=== PATIENT | female | born 1995 | race Caucasian/White ===

== ENCOUNTER 2019-06-25 07:22 | Outpatient (CLI) | payer OTHER ==
[2019-06-25 13:39] LABS: CHLORIDE 110 mmol/L (98-107)
[2019-06-25 13:55] LABS: ALANINE AMINOTRANSFERASE 17 U/L (12-78); ALBUMIN 3.8 g/dL (3.4-5.0); ALKALINE PHOSPHATASE 82 U/L (45-117); ANION GAP 6 mmol/L (5-15); BILIRUBIN,TOTAL 0.4 mg/dL (0.2-1.0); CALCIUM 9.2 mg/dL (8.5-10.1); CHOL/HDL RATIO 4.3; CHOLESTEROL, TOTAL 166 mg/dL (140-239); CREATININE 0.89 mg/dL (0.55-1.02); HDL CHOL % 23 % (28-40); HDL CHOLESTEROL (DIRECT) 39 mg/dL (40-60); LDL CHOLESTEROL,CALCULATED 105 mg/dL (54-169); LDL/HDL RATIO 2.7 (0.5-3.0); TOTAL PROTEIN 7.7 g/dL (6.4-8.2); TRIGLYCERIDES 110 mg/dL (50-200); VLDL CHOLESTEROL 22 mg/dL (0-25)
== END 2019-06-25 23:59 | disposition home or self-care (01) ==
LOC: CFH 07:22
PROVIDERS: ATTEND Family Medicine
DX: E78.00 Pure hypercholesterolemia, unspecified (principal); I10 Essential (primary) hypertension; R00.2 Palpitations; R73.03 Prediabetes
CPT/HCPCS: 36415; 80053; 80061; 82306; 83036; 84439; 84443

== ENCOUNTER 2019-07-03 07:02 | Outpatient (CLI) | payer OTHER | END 2019-07-03 23:59 | disposition home or self-care (01) | LOC: CVU 07:02 | PROVIDERS: ATTEND Internal Medicine Cardiovascular Disease | DX: I08.8 Other rheumatic multiple valve diseases (principal); I11.9 Hypertensive heart disease without heart failure | CPT/HCPCS: 93306 ==

== ENCOUNTER 2020-04-30 17:07 | Emergency (ER) | payer OTHER ==
[~2020-04-30] VITALS: Ht 172.7 cm; Wt 107.8 kg
[2020-04-30 17:14] VITALS: BP 149/98
== END 2020-04-30 18:36 | disposition home or self-care (01) ==
LOC: ED 17:37
DX: U07.1 COVID-19 (principal); J06.9 Acute upper respiratory infection, unspecified; J02.8 Acute pharyngitis due to other specified organisms; R50.9 Fever, unspecified; R05 Cough; M79.10 Myalgia, unspecified site
CPT/HCPCS: 71045; 87635; 99284

== ENCOUNTER 2020-09-12 07:48 | Emergency (ER) | payer OTHER ==
[~2020-09-12] VITALS: Ht 172.7 cm; Wt 110.3 kg
[2020-09-12] MEDS ORDERED: MORPHINE SULFATE 4 MG/ML, 1ML IVPush PRN (08:30)
[2020-09-12] MEDS ORDERED: SODIUM CHLORIDE 0.9% 1,000ML IVBOLUS ONE (08:30)
[2020-09-12] MEDS ORDERED: SODIUM CHLORIDE FLUSH 10ML SYR IVF ONE (08:30)
[2020-09-12] MEDS ORDERED: ONDANSETRON 2MG/ML, 2ML IVPush ONE (08:30)
--- NOTE | 2020-09-12 08:46 | NUR ---
Pt made aware that if given morphine she will need a ride home, pt was told to let this nurse know if she would like to recieve or delay manager med surg.
[2020-09-12] MEDS ORDERED: ONDANSETRON 2MG/ML, 2ML ONE (08:48)
[2020-09-12 08:55] LABS: BASOPHILS % (AUTO) 1 % (0-1); EOSINOPHILS % (AUTO) 4 % (1-7); LYMPHOCYTES % (AUTO) 29 % (22-44); MEAN CORPUSCULAR HEMOGLOBIN 28.3 pg (27.0-34.8); MEAN CORPUSCULAR HGB CONC 34.2 g/dL (32.4-35.8); MEAN PLATELET VOLUME 8.9 fL (7.4-10.4); MONOCYTES % (AUTO) 5 % (2-9); NEUTROPHILS % (AUTO) 61 % (42-75); PLATELET COUNT 341 x10^3/uL (130-400); RED BLOOD COUNT 4.83 x10^6/uL (3.82-5.3); RED CELL DISTRIBUTION WIDTH 13.8 % (9.6-15.2)
--- NOTE | 2020-09-12 08:57 | NUR ---
pt medicated per AUG, will hold off on morphine until after CT complete per pt request.
[2020-09-12 09:03] LABS: ALANINE AMINOTRANSFERASE 19 U/L (12-78); ALBUMIN 3.6 g/dL (3.4-5.0); ANION GAP 5 mmol/L (5-15); CALCIUM 8.7 mg/dL (8.5-10.1); CHLORIDE 109 mmol/L (98-107); CREATININE 0.88 mg/dL (0.55-1.02)
[2020-09-12 09:04] LABS: MD NO
[2020-09-12 09:07] LABS: ALKALINE PHOSPHATASE 78 U/L (45-117); BILIRUBIN,TOTAL 0.5 mg/dL (0.2-1.0); TOTAL PROTEIN 7.5 g/dL (6.4-8.2)
[2020-09-12 09:24] LABS: MICROSCOPIC NOT IND
--- NOTE | 2020-09-12 09:38 | NUR ---
pt to CT
[2020-09-12] MEDS ORDERED: OMNIPAQUE 350 MG/ML, 100ML BOTTLE ONE (09:45)
--- NOTE | 2020-09-12 09:47 | NUR ---
pt back from CT
[2020-09-12 10:11] VITALS: BP 124/70
== END 2020-09-12 10:15 | disposition home or self-care (01) ==
LOC: ED 08:48
DX: I88.0 Nonspecific mesenteric lymphadenitis (principal); R10.31 Right lower quadrant pain; R10.2 Pelvic and perineal pain; R11.2 Nausea with vomiting, unspecified; I10 Essential (primary) hypertension
CPT/HCPCS: 36415; 74177; 80053; 81003; 83690; 84703; 85025; 96361; 96374; 99285; J2405; J7030; Q9967

== ENCOUNTER 2020-10-02 14:05 | Outpatient (CLI) | payer OTHER ==
[2020-10-02] MEDS ORDERED: NORE0.3560 PO (14:23)
[2020-10-02] MEDS ORDERED: Vitamin D3 PO (14:23)
[2020-10-02] MEDS ORDERED: MAGN250T8 PO (14:23)
[2020-10-02] MEDS ORDERED: FREM225A INJ (14:23)
[2020-10-02] MEDS ORDERED: LOSA25TA25 PO (14:23)
[2020-10-02 14:55] LABS: ALANINE AMINOTRANSFERASE 21 U/L (12-78); ANION GAP 5 mmol/L (5-15); CALCIUM 9.4 mg/dL (8.5-10.1); CHLORIDE 107 mmol/L (98-107); CREATININE 0.81 mg/dL (0.55-1.02)
[2020-10-02 14:57] LABS: ALKALINE PHOSPHATASE 71 U/L (45-117); BILIRUBIN,TOTAL 0.4 mg/dL (0.2-1.0)
== END 2020-10-02 23:59 | disposition home or self-care (01) ==
LOC: STAR 14:05
PROVIDERS: ATTEND Specialist
DX: Z01.812 Encounter for preprocedural laboratory examination (principal); Z20.822 Contact with and (suspected) exposure to COVID-19; N94.4 Primary dysmenorrhea; R10.2 Pelvic and perineal pain; N94.12 Deep dyspareunia
CPT/HCPCS: 36415; 80053; 93005; U0003

== ENCOUNTER 2020-10-07 10:27 | Day surgery (SDC) | payer OTHER ==
[~2020-10-07] VITALS: Ht 172.7 cm; Wt 108.1 kg
[~2020-10-07 10:27] MED LIST: FREM225A INJ; LOSA25TA25 PO; MAGN250T8 PO; NORE0.3560 PO; Vitamin D3 PO
[2020-10-07] MEDS ORDERED: CHLORHEXIDINE 15 ML UDC ONE (11:14)
[2020-10-07 11:19] LABS: HCG UR SG 1.023 (1.003-1.030)
[2020-10-07] MEDS ORDERED: LACTATED RINGERS 1,000 ML IV SCH (11:30)
[2020-10-07] MEDS ORDERED: CHLORHEXIDINE 15 ML UDC PO ONE (11:30)
[2020-10-07 11:37] VITALS: BP 134/92
[2020-10-07] MEDS ORDERED: BUPIVACAINE/PF 0.25% ONE (11:46)
[2020-10-07] MEDS ORDERED: SILVER NITRATE STICK TP ONE (11:46)
[2020-10-07] MEDS ORDERED: MIDAZOLAM 1 MG/ML, 2ML ONE (11:47)
[2020-10-07] MEDS ORDERED: FENTANYL PF 250 MCG/5ML ONE (11:48)
[2020-10-07] MEDS ORDERED: DEXAMETHASONE 4 MG/ML, 1ML ONE (12:20)
[2020-10-07] MEDS ORDERED: ROCURONIUM 10MG/ML,5ML ONE (12:36)
[2020-10-07] MEDS ORDERED: GLYCOPYRROLATE 0.2MG/1ML, 5ML ONE (12:36)
[2020-10-07] MEDS ORDERED: ONDANSETRON 2MG/ML, 2ML ONE (12:36)
[2020-10-07] MEDS ORDERED: NEOSTIGMINE 1 MG/ML, 10ML ONE (12:36)
[2020-10-07] MEDS ORDERED: LIDOCAINE-MPF 2% ,5ML ONE (12:36)
[2020-10-07] MEDS ORDERED: KETOROLAC 30 MG/1 ML ONE (12:36)
[2020-10-07] MEDS ORDERED: PROPOFOL 10 MG/ML, 20ML ONE (12:36)
[2020-10-07] MEDS ORDERED: HYDROmorphone 1 MG/ML, 1ML INJ ONE (12:47)
[2020-10-07] MEDS ORDERED: OXYcodone 5 MG/5 ML ORAL.SOL UDC PO PRN (13:00)
[2020-10-07] MEDS ORDERED: METHOCARBAMOL 1,000 MG in DEXTROSE 5% 100 ML IV PRN (13:00)
[2020-10-07] MEDS ORDERED: hydrALAzine 20 MG/ML, 1ML IV PRN (13:00)
[2020-10-07] MEDS ORDERED: LABETALOL 5MG/ML, 20ML IV PRN (13:00)
[2020-10-07] MEDS ORDERED: HYDROmorphone 1 MG/ML, 1ML INJ IVPush PRN (13:00)
[2020-10-07] MEDS ORDERED: LORazepam 2 MG/ML, 1ML IVPush PRN (13:00)
[2020-10-07] MEDS ORDERED: PROMETHAZINE 25 MG/ML, 1ML IVPush PRN (13:00)
[2020-10-07] MEDS ORDERED: ACETAMINOPHEN 325 MG TABLET PO PRN (13:00)
[2020-10-07] MEDS ORDERED: ALBUTEROL SULFATE 2.5 MG/3 ML NPPB PRN (13:00)
[2020-10-07] MEDS ORDERED: MEPERIDINE/PF 25MG/0.5ML IVPush PRN (13:00)
[2020-10-07] MEDS ORDERED: ACETAMINOPHEN 650 MG/20.3 ML UDC ONE (13:44)
[2020-10-07] MEDS ORDERED: OXYcodone 5 MG/5 ML ORAL.SOL UDC ONE (13:45)
[2020-10-07] MEDS ORDERED: FENTANYL PF 100 MCG/2ML ONE (13:45)
[2020-10-07] MEDS: FENTANYL PF 100 MCG/2ML IV PRN ×3 (13:49→14:12)
== END 2020-10-07 16:26 | disposition home or self-care (01) ==
LOC: OUT 10:27
PROVIDERS: ATTEND Specialist
DX: N94.4 Primary dysmenorrhea (principal); N83.8 Other noninflammatory disorders of ovary, fallopian tube and broad ligament; K66.0 Peritoneal adhesions (postprocedural) (postinfection); N94.12 Deep dyspareunia; N80.1 Endometriosis of ovary; F41.9 Anxiety disorder, unspecified; K21.9 Gastro-esophageal reflux disease without esophagitis; G43.909 Migraine, unspecified, not intractable, without status migrainosus; I10 Essential (primary) hypertension; E66.9 Obesity, unspecified; Z88.1 Allergy status to other antibiotic agents; Z91.018 Allergy to other foods; Z79.899 Other long term (current) drug therapy; Z72.89 Other problems related to lifestyle; Z80.0 Family history of malignant neoplasm of digestive organs; Z98.890 Other specified postprocedural states; Z68.36 Body mass index [BMI] 36.0-36.9, adult
CPT/HCPCS: 58662; 81025; 88304; 88305; J1100; J1170; J1885; J2250; J2405; J2704; J2710; J3010; J7120

== ENCOUNTER 2020-12-27 00:10 | Emergency (ER) | payer SELFPAY ==
[~2020-12-27] VITALS: Ht 172.7 cm; Wt 110.6 kg
[2020-12-27 02:20] LABS: MICROSCOPIC NOT IND
[2020-12-27 03:07] VITALS: BP 136/73
[2020-12-27 03:47] LABS: BASOPHILS % (AUTO) 1 % (0-1); EOSINOPHILS % (AUTO) 3 % (1-7); LYMPHOCYTES % (AUTO) 33 % (22-44); MEAN CORPUSCULAR HGB CONC 33.9 g/dL (32.4-35.8); MEAN PLATELET VOLUME 8.9 fL (7.4-10.4); MONOCYTES % (AUTO) 6 % (2-9); NEUTROPHILS % (AUTO) 57 % (42-75); PLATELET COUNT 311 x10^3/uL (130-400); RED BLOOD COUNT 4.64 x10^6/uL (3.82-5.3)
[2020-12-27 04:00] LABS: ALBUMIN 3.4 g/dL (3.4-5.0); ANION GAP 7 mmol/L (5-15); CALCIUM 8.8 mg/dL (8.5-10.1); CHLORIDE 110 mmol/L (98-107); CREATININE 0.75 mg/dL (0.55-1.02)
== END 2020-12-27 05:51 | disposition home or self-care (01) ==
LOC: ED 05:40
DX: O20.0 Threatened abortion (principal); Z3A.01 Less than 8 weeks gestation of pregnancy
CPT/HCPCS: 36415; 76830; 80048; 81003; 82040; 84702; 85025; 86901; 99284